=== PATIENT | female | born 1960 | race African-American/Black ===

== ENCOUNTER → 2016-10-16 | Outpatient (CLI) | payer OTHER ==
--- NOTE | ~2016-10-16 | BD1 ---
[facility] A Service of [facility] & [facility] RADIOLOGY TEXT RESULTS PATIENT: INESSA LIMA LOCATION: [facility] : 64 UNIT #: [id number] AGE: [address]: BILLIE OLEARY SEX: F ORDER DR: [id number] [facility] [address] [place], [place] [address] [id number] O MR#: [id number] Acc #: [id number] NAME: INESSA LIMA : 1960 SEX: F STUDY DATE/TIME: 10/16/2016 11:32 UNIT: [facility] ROOM: STUDY DESCRIPTION: BD Dexa Bone Dens 1+ Site Attending Physician: Billie Oleary Aprn Referring Physician: Billie Oleary Aprn Ordering Physician: Physician Non-Staff Primary Care Physician: Billie Oleary Aprn MEDICAL IMAGING REPORT This report is preliminary unless electronic signature is present EXAM DXA scan 10/16/2016 HISTORY Status post menopause with history of hormone replacement therapy. Hysterectomy at age 41 with removal of both ovaries. Osteopenia and arthritis. Fracture of right leg in last 10 years. FINDINGS Bone mineral density in the lumbar spine from L1-L4 was 1.072 g/cm2, which is 0.7 standard deviations below the mean when compared to the young adult reference population, which is within the range of normal. This is 0.5 standard deviations above the mean when compared to the age-match population. Bone mineral density in the left femoral neck was 0.869 g/cm2, which is 0.6 standard deviations below the mean when compared to the young adult reference population, which is within the range of normal. This is 0.2 standard deviations above the mean when compared to the age-match population. IMPRESSION Bone mineral density in the lumbar spine and left hip within the range of normal. Dictated by... Satinder Morgan M.D. THIS IS AN ELECTRONICALLY VERIFIED REPORT Satinder Morgan M.D. at 10/17/2016 7:24 AM ARMANDO/ramírez TD: 10/16/2016 16:31 JOB #: [id number] [facility] A Service of [facility] & [facility] RADIOLOGY TEXT RESULTS PATIENT: INESSA LIMA LOCATION: [facility] : 64 UNIT #: [id number] AGE: [address]: BILLIE OLEARY SEX: F ORDER DR: MEDICAL IMAGING REPORT Page 1 of 1 COPY
== END | disposition home or self-care (01) ==
LOC: CWCC 11:00
DX: M80.851 Other osteoporosis with current pathological fracture, right femur (principal); Z78.0 Asymptomatic menopausal state
CPT/HCPCS: 77080